=== PATIENT | male | born 1965 | race African-American/Black ===

== ENCOUNTER 2022-08-15 10:11 | Observation (INO) | payer SELFPAY ==
[2022-08-15 10:55] LABS: #Eosinphils 0.5 thou/uL (0.0-0.7); #Lymphocytes 2.7 thou/uL (1.20-3.40); #Monocytes 0.8 thou/uL (0.11-0.59); #Neutrophils 2.1 thou/uL (1.40-6.50); %Basophils 0.4 % (0.0-1.0); %Eosinophils 7.9 % (0.0-10.0); %Lymphocytes 44.8 % (21.0-51.0); %Monocytes 12.6 % (0.0-10.0); %Neutrophils 34.2 % (42.0-75.0); Hemoglobin 14.3 g/dL (14.0-18.0); Mean Corpuscular HGB CONC 33.7 g/dL (32.0-36.0); Mean Corpuscular Hemoglobin 30.4 pg (27.0-31.0); Mean Corpuscular Volume 90.3 fl (78.0-98.0); Mean Platelet Volume 8.2 fL (7.4-10.4); Platelet Count 230 10x3/uL (130-400); RBC Distribution Width 14.3 % (11.5-14.5); Red Blood Cell (RBC) Count 4.71 mill/uL (4.70-6.10)
[2022-08-15] MEDS ORDERED: Aspirin Chewable 81 MG TAB ONE (11:14)
[2022-08-15 11:18] LABS: ALT (SGPT) 62 U/L (8-55); AST (SGOT) 49 U/L (5-34); Albumin 4.1 g/dL (3.5-5.0); Alkaline Phosphatase 86 U/L (40-110); Anion Gap 13 mmol/L (10-20); BUN (Urea Nitrogen) 13 mg/dL (8.4-25.7); Bilirubin, Total 0.4 mg/dL (0.2-1.2); Calc. Creatinine Clearance 0 mL/min (70-130); Calcium 9.2 mg/dL (7.8-10.44); Carbon Dioxide 24 mmol/L (22-29); Chloride 106 mmol/L (98-107); Estimated GFR 100; Globulin 3.1 g/dL (2.4-3.5); Glucose 107 mg/dL (70-105); Potassium 4.1 mmol/L (3.5-5.1); Protein, Total 7.2 g/dL (6.0-8.3); Sodium 139 mmol/L (136-145)
[2022-08-15 11:34] LABS: Prothrombin Time 13.3 sec (12.0-14.7)
[2022-08-15 11:35] LABS: PTT 27.9 sec (22.9-36.1)
[2022-08-15] MEDS ORDERED: Ketorolac Tromethamine 30 MG/ML VIAL ONE (12:31)
[2022-08-15] MEDS ORDERED: Lorazepam 1 MG TAB PO PRN (13:40)
[2022-08-15] MEDS ORDERED: Lorazepam 2 MG/ML VIAL IM PRN (13:40)
[2022-08-15] MEDS ORDERED: Acetaminophen 325 MG TAB PO PRN (13:40)
[2022-08-15] MEDS ORDERED: Ondansetron ODT 4 MG TAB PO PRN (13:40)
[2022-08-15] MEDS ORDERED: Thiamine HCl 200 MG/2 ML VIAL SLOW IVP SCH (13:45)
[2022-08-15] MEDS ORDERED: Electrolyte Replacement Protocol 1 EACH FS SCH (13:45)
[2022-08-15] MEDS ORDERED: hydrALAZINE 20 MG/ML VIAL SLOW IVP PRN (13:54)
[2022-08-15] MEDS ORDERED: Lorazepam 1 MG TAB ONE ×2 (14:14→20:39)
[2022-08-15] MEDS ORDERED: Folic Acid 1 MG TAB PO SCH (14:15)
[2022-08-15] MEDS ORDERED: Polyethylene Glycol 3350 17 GM Packet PO SCH (14:15)
[2022-08-15] MEDS ORDERED: Nicotine 21 MG PATCH TD SCH (14:15)
[2022-08-15] MEDS ORDERED: Multivit, Therapeutic 1 TAB PO SCH (14:15)
[2022-08-15] MEDS: Lorazepam 1 MG TAB PO SCH ×2 (14:20→20:59)
[2022-08-15 14:25] LABS: Troponin I Less than 0.010 ng/mL (< 0.028)
[2022-08-15] MEDS ORDERED: Folic Acid 1 MG TAB ONE (14:33)
[2022-08-15] MEDS ORDERED: Acetaminophen 325 MG TAB ONE (14:35)
[2022-08-15 16:41] LABS: Amphetamine Not Detected (NotDetected); Barbiturates Screen Not Detected (NotDetected); Benzodiazepine Screen Not Detected (NotDetected); Cocaine Metabolite Screen Not Detected (NotDetected); Methadone Not Detected (NotDetected); Methamphetamine Not Detected (NotDetected); Opiate Screen Not Detected (NotDetected); Oxycodone Screen Not Detected (NotDetected); Phencyclidine (PCP) Not Detected (NotDetected); THC/Cannabinoid Screen Not Detected (NotDetected); Tricyclic Screen Not Detected (NotDetected)
[2022-08-15] MEDS ORDERED: Morphine 2 MG/ML VIAL ONE ×2 (16:53→21:19)
[2022-08-15] MEDS ORDERED: Ondansetron ODT 4 MG TAB ONE (16:57)
[2022-08-15] MEDS: Morphine 4 MG/ML VIAL SLOW IVP PRN ×2 (16:59→21:24)
[2022-08-15 17:31] LABS: Magnesium 1.7 mg/dL (1.6-2.6); Phosphorus 3.5 mg/dL (2.3-4.7)
[2022-08-15 17:36] LABS: Troponin I Less than 0.010 ng/mL (< 0.028)
[2022-08-15 20:28] LABS: Syphilis Antibody Index 2.63 S/CO (<1.00 Non-Reactive)
[2022-08-15 20:32] LABS: Syphilis Antibody INDETERMINATE (Nonreactive); Syphilis Titer Non-Reactive Titer (Negative)
[2022-08-15] MEDS: Docusate 100 MG CAP PO SCH (20:59)
[2022-08-15] MEDS ORDERED: Atorvastatin Calcium 40 MG TAB PO SCH (21:00)
[2022-08-15 22:49] VITALS: BMI 31.3
[2022-08-16] MEDS: Morphine 4 MG/ML VIAL SLOW IVP PRN ×3 (00:24→10:57)
[2022-08-16] MEDS: Lorazepam 1 MG TAB PO SCH ×2 (02:33→11:08)
[2022-08-16 05:27] LABS: Anion Gap 12 mmol/L (10-20); BUN (Urea Nitrogen) 12 mg/dL (8.4-25.7); Calc. Creatinine Clearance 136 mL/min (70-130); Calcium 9.2 mg/dL (7.8-10.44); Carbon Dioxide 26 mmol/L (22-29); Cardiac Risk 2.8 (Less than 4.5); Chloride 106 mmol/L (98-107); Cholesterol 171 mg/dl (< 200 Desired); Estimated GFR 101; Glucose 101 mg/dL (70-105); HDL Cholesterol 61 mg/dL (>60 Neg Risk); LDL Cholesterol, Calculated 94 mg/dL; Potassium 4.1 mmol/L (3.5-5.1); Sodium 140 mmol/L (136-145); Triglycerides 80 mg/dL (Less than 150)
[2022-08-16] MEDS ORDERED: Magnesium 2 GM/50 ML(in water) 2 GM in Premix Bag 1 BAG IVPB SCH (08:45)
[2022-08-16] MEDS ORDERED: Aspirin 81 mg Enteric Coated Tablet PO SCH (09:00)
[2022-08-16] MEDS ORDERED: Folic Acid 1 MG TAB PO SCH (09:00)
[2022-08-16] MEDS ORDERED: Multivit, Therapeutic 1 TAB PO SCH (09:00)
[2022-08-16] MEDS ORDERED: Polyethylene Glycol 3350 17 GM Packet PO SCH (09:00)
[2022-08-16] MEDS: Docusate 100 MG CAP PO SCH (10:59)
[2022-08-16 12:05] VITALS: TEMP 97.5
[2022-08-16] MEDS ORDERED: cloNIDine 0.1 MG TAB PO PRN (12:06)
[2022-08-16] MEDS ORDERED: Ketorolac Tromethamine 30 MG/ML VIAL IVP PRN (12:07)
[2022-08-16] MEDS ORDERED: Carvedilol 6.25 MG TAB PO SCH ×2 (12:15→21:00)
[2022-08-16] MEDS ORDERED: Lorazepam 1 MG TAB PO PRN (13:40)
[2022-08-16 14:07] VITALS: BP 179/109
[2022-08-17] MEDS ORDERED: Lorazepam 1 MG TAB PO PRN (13:40)
[2022-08-17] MEDS ORDERED: Lorazepam 0.5 MG TAB PO SCH (13:45)
[2022-08-18] MEDS ORDERED: Thiamine 100 MG TAB PO SCH (09:00)
[2022-08-18] MEDS ORDERED: Lorazepam 0.5 MG TAB PO PRN (13:40)
== END 2022-08-16 14:09 | disposition home or self-care (01) ==
LOC: ERS 10:11 → ERHOLD 12:31 → 2NO 22:32
PROVIDERS: ADMIT Internal Medicine; ATTEND Internal Medicine
DX: M47.816 Spondylosis without myelopathy or radiculopathy, lumbar region (principal); M51.36 Other intervertebral disc degeneration, lumbar region; M48.061 Spinal stenosis, lumbar region without neurogenic claudication; K76.0 Fatty (change of) liver, not elsewhere classified; R79.89 Other specified abnormal findings of blood chemistry; K59.00 Constipation, unspecified; I10 Essential (primary) hypertension; I25.10 Atherosclerotic heart disease of native coronary artery without angina pectoris; I44.0 Atrioventricular block, first degree; E78.5 Hyperlipidemia, unspecified; F10.10 Alcohol abuse, uncomplicated; F17.210 Nicotine dependence, cigarettes, uncomplicated; E66.9 Obesity, unspecified; Z68.31 Body mass index [BMI] 31.0-31.9, adult; Z95.1 Presence of aortocoronary bypass graft; Z79.82 Long term (current) use of aspirin; Z79.899 Other long term (current) drug therapy
CPT/HCPCS: 36415; 70450; 70551; 71045; 72148; 80048; 80053; 80061; 80306; 82550; 83735; 84100; 84484; 85025; 85610; 85730; 86593; 86780; 93005; 93880; 96372; 96374; 96375; G0378; J1650; J1885; J2270; J2272; J3411; Q0162